=== PATIENT | male | born 1955 | race Caucasian/White ===

== ENCOUNTER → 2024-07-16 14:53 | Outpatient (REF) | payer MEDICARE, SELFPAY | LOC: MRI 3T 14:53 | PROVIDERS: ATTENDING PHYSICIAN Urology; FAMILY PHYSICIAN Internal Medicine | DX: C61 Malignant neoplasm of prostate (principal) | CPT/HCPCS: 72197; A9575 ==

== ENCOUNTER → 2024-08-25 11:37 | Outpatient (REF) | payer MEDICARE, SELFPAY | LOC: RCS 11:37 | PROVIDERS: ATTENDING PHYSICIAN Urology; FAMILY PHYSICIAN Internal Medicine | DX: R97.20 Elevated prostate specific antigen [PSA] (principal); C61 Malignant neoplasm of prostate | CPT/HCPCS: 93005 ==

== ENCOUNTER → 2024-08-27 10:45 | Outpatient (REF) | payer MEDICARE, SELFPAY | LOC: CLAB 10:45 | PROVIDERS: ATTENDING PHYSICIAN Urology | DX: C61 Malignant neoplasm of prostate (principal) | CPT/HCPCS: 88305 ==